=== PATIENT | female | born 1950 | race Caucasian/White ===

== ENCOUNTER → 2017-02-12 | Outpatient (CLI) | payer MEDICARE, OTHER ==
[2015-06-20 11:30] VITALS: BP 134/70
[~2017-02-12] MED LIST: AMIT75TA PO; ATOR10TA60 PO; CIPR250T PO; CIPR500T PO; CIPR500T94 PO; CITR473S3 PO; CRESTOR10 MG PO; FOLI1CAP10 PO; HYDR-2666 PO; HYDR25TA PO; LANS30CA17 PO; LISI10TA2 PO; LORA1TAB PO; NITR100C PO; OMEP20CA9 PO; PHEN-373 PO; POTA10TA17 PO; PROP1TAB8 PO; PROP80CA3 PO
--- NOTE | 2017-02-12 16:07 | RAD ---
Examination: Ultrasound kidneys. History: History of renal calculi Comparison: None available Findings: The right kidney measures 7.3 x 3.8 x 4.2 cm. The left kidney measures 8.2 x 4.9 x 3.2 cm. There is echogenicity identified in the lower pole of the right kidney measuring 7 mm. There is echogenicity identified in the lower pole of the left kidney measuring 6 mm likely intrarenal collecting system calculi. The urinary bladder is nondistended. No hydronephrosis. Mild echogenic appearing bilateral kidneys. Impression: 1. Echogenicity identified in the right kidney measuring 8 mm in the right kidney and a 6 mm echogenicity identified in the left kidney likely intrarenal collecting system calculi. 2. Mild echogenic appearing bilateral kidneys could be due to medical renal disease.
== END | disposition home or self-care (01) ==
LOC: US 14:47
PROVIDERS: ATTEND Nurse Practitioner Occupational Health
DX: N20.0 Calculus of kidney (principal)
CPT/HCPCS: 76770

== ENCOUNTER → 2017-05-10 | Outpatient (CLI) | payer MEDICARE, OTHER ==
[2015-06-20 11:30] VITALS: BP 134/70
[~2017-05-10] MED LIST changes: -HYDR-2666 PO; +HYDR-2758 PO; -LANS30CA17 PO; +LANS30CA66 PO; -PHEN-373 PO; +PHEN-444 PO
[2017-05-10 11:20] LABS: CALCIUM 9.3 mg/dL (8.5-10.1); CREATININE 2.1 mg/dL (0.6-1.0); GFR 23.6; POTASSIUM 4.5 mmol/L (3.5-5.1)
[2017-05-10 20:10] LABS: URIC ACID 24 HR UR 236.6 mg/24 hr (250.0-750.0); URIC ACID UR 8.3 mg/dL (Not Estab.)
[2017-05-11 01:08] LABS: CALCIUM 24 HR UR 25.7 mg/24 hr (100.0-300.0); CALCIUM UR 0.9 mg/dL (Not Estab.)
== END | disposition home or self-care (01) ==
LOC: LAB 10:51
PROVIDERS: ATTEND Nurse Practitioner Occupational Health
DX: R93.429 Abnormal radiologic findings on diagnostic imaging of unspecified kidney (principal); N20.0 Calculus of kidney
CPT/HCPCS: 36415; 80048; 82340; 84560

== ENCOUNTER → 2017-06-24 | Outpatient (CLI) | payer MEDICARE, OTHER ==
[2015-06-20 11:30] VITALS: BP 134/70
--- NOTE | 2017-06-24 14:46 | KCIC ---
PA and lateral chest radiographs 06/24/2017 CLINICAL HISTORY: Bilateral vocal cord paralysis. PA and lateral digital radiographs of the chest were obtained. No previous studies are available for comparison. The cardiac silhouette is mildly enlarged. The thoracic aorta is tortuous. Atherosclerotic calcification of the thoracic aorta is seen. Multiple calcified hilar and mediastinal lymph nodes are seen. Small calcified granulomas are seen involving both lungs. Areas of probable scarring are seen involving both upper lobes, right greater than left. No acute pulmonary infiltrate is seen. No pleural effusion or pneumothorax is noted. The osseous structures are grossly intact. IMPRESSION: 1. Findings consistent with prior granulomatous disease. 2. No acute pulmonary infiltrate is seen. Electronically signed by: Mariano Rg MD (06/24/2017 2:43 PM) [facility]
== END | disposition home or self-care (01) ==
LOC: KCIC 14:09
PROVIDERS: ATTEND Orthopaedic Surgery Sports Medicine
DX: J38.02 Paralysis of vocal cords and larynx, bilateral (principal)
CPT/HCPCS: 71020

== ENCOUNTER → 2018-01-13 | Outpatient (CLI) | payer MEDICARE, OTHER | END | disposition home or self-care (01) | LOC: KCIC MRI 10:39 | DX: S76.011A Strain of muscle, fascia and tendon of right hip, initial encounter (principal); G89.29 Other chronic pain; X58.XXXA Exposure to other specified factors, initial encounter; Y93.89 Activity, other specified; Y92.89 Other specified places as the place of occurrence of the external cause; Y99.8 Other external cause status | CPT/HCPCS: 73721 ==

== ENCOUNTER → 2019-07-20 | Outpatient (CLI) | payer MEDICARE, OTHER ==
[2015-06-20 11:30] VITALS: BP 134/70
[~2019-07-20] MED LIST changes: -HYDR-2758 PO; +HYDR-2761 PO; +OMEP20CA10 PO; -OMEP20CA9 PO
--- NOTE | 2019-07-20 09:06 | RAD ---
DATE: 07/20/2019. EXAM: DIGITAL DIAGNOSTIC RT HISTORY: Postbiopsy marker placement mammogram. COMPARISON: Previous mammogram from 06/29/2019. This study was interpreted with the benefit of Computerized Aided Detection (CAD). FINDINGS: Breast Density: HETERO The breast parenchyma Is heterogeneously dense, which could reduce sensitivity of mammography. Breast parenchyma level C. Biopsy marker is seen at 12:00 position adjacent to the dominant focus of calcification. IMPRESSION: As above. Pathology pending.
--- NOTE | 2019-07-20 09:22 | RAD ---
Indication: Right breast mass. Patient here for ultrasound guided biopsy. TECHNIQUE: After explaining risks and benefits of the procedure, informed consent was obtained. Appropriate entrance site was chosen over the right breast. The skin was prepped and draped using usual sterile procedure. 1 percent lidocaine was used for local anesthesia. Under ultrasound guidance for 5 core biopsies was obtained. Postbiopsy marker placement was placed. Patient was sent for mammogram. COMPARISON: Outside ultrasound from 06/29/2019. FINDINGS: Ill-defined hypoechoic mass is seen at position approximately 4 cm from the nipple from which 5 core biopsy samples were obtained. IMPRESSION: Ultrasound-guided right breast mass biopsy. Pathology pending. Electronically signed by: Александр Peñaloza DO (07/20/2019 9:19 AM) [facility]
--- NOTE | 2019-07-24 08:06 | PATHOLOGY ---
[facility] Accession Number: [id number] . 01 Material submitted: . breast - RIGHT BREAST MASS, 12:00, 4CMFN. Modifiers: right, 12:00 . 01 Clinical history: . Right breast mass . 02 Diagnosis: Breast tissue, right breast mass 12:00 needle biopsies: - Stromal fibrosis and sclerosing adenosis. - Scattered microcalcifications identified. (JPM:cosmetician apprentice; 07/21/2019) MBR/07/21/2019 . 02 Comment: Sections of the right breast mass needle biopsy reveal breast tissue showing stromal fibrosis and sclerosing adenosis. There are scattered microcalcifications present. There is no atypia or evidence of malignancy. (JPM:cosmetician apprentice; 07/21/2019) . 02 Electronically signed: . Vivek Raygoza MD, Pathologist NPI- [id number] . 01 Gross description: . The specimen is received in formalin, labeled "Flavia Hodges, right breast 12:00". The specimen is additionally labeled on the requisition as, "right breast mass 12:00 4 cm from nipple". Received are multiple needle cores of fibrofatty tissue measuring 1.7 x 1.0 x 0.2 cm in aggregate dimensions. The specimen is submitted entirely in cassettes A1 through A3. The cold ischemic time is 8 minutes. The total formalin fixation time is 13 hours and 6 minutes. (CAA; 07/20/2019) QAC/QAC . 02 Pathologist provided ICD-10: N60.31, N60.21 . 02 CPT . 486598 Specimen Comment: A courtesy copy of this report has been sent to Specimen Comment: [phone], . Specimen Comment: Report sent to / DR MONTGOMERY Performed at: 01 [facility] [address], [place], [place] [id number] MD Zheng Headley MD Phone: [phone] Performed at: 02 [facility] [address] [place], [place] [id number] MD Vivek Raygoza MD Phone: [phone]
== END ==
LOC: US 11:38
PROVIDERS: ATTEND Family Medicine
DX: N60.31 Fibrosclerosis of right breast (principal)
CPT/HCPCS: 19083; 77065; 88305; C1713; 19081; 76942

== ENCOUNTER → 2020-11-18 | Outpatient (CLI) | payer MEDICARE, OTHER ==
[2015-06-20 11:30] VITALS: BP 134/70
[~2020-11-18] MED LIST changes: -OMEP20CA10 PO; +OMEP20CA16 PO; +REGADENOSON 0.4 MG/5 ML DISP.SYRIN. IV ONE
--- NOTE | 2020-11-18 14:40 | CARD ---
MR#: [id number] Date of Study: 11/18/2020 Ordering Physician: AGUS BRIAN, Referring Physician: AGUS BRIAN Tech: Alisson Burgess RDCS APPROVED REPORT EXAM: Two-dimensional and M-mode echocardiogram with Doppler and color Doppler. Other Information Quality : Good INDICATION Exertional Dyspnea 2D DIMENSIONS RVDd2.6 (2.9-3.5cm)Left Atrium(2D)4.8 (1.6-4.0cm) IVSd0.8 (0.7-1.1cm)Aortic Root(2D)2.6 (2.0-3.7cm) LVDd4.9 (3.9-5.9cm)LVOT Diameter1.9 (1.8-2.4cm) PWd0.8 (0.7-1.1cm)LVDs3.2 (2.5-4.0cm) FS (%) 35.4 %SV73.1 ml LVEF(%)64.6 (>50%) Aortic Valve AoV Peak David.149.1cm/sAoV VTI17.4cm AO Peak GR.8.9mmHgLVOT Peak David.92.5cm/s LVOT VTI 11.44cmAO Mean GR.4mmHg GALINA (VMAX)1.90ou8WFV (VTI)1.96cm2 Mitral Valve MV E Peak Gr.118mmHgMV DECEL FPVV681ye MV E Mean Gr.30mmHgMV IWS214tg MVA (PHT)1.89cm2 Tricuspid Valve TR P. Dboxsavp233ml/sRAP BWHMOYJL8lwVg TR Peak Gr.94jpQqVJHV52mvEn Pulmonary Vein S1 Kjcrrkxw42.2cm/sD2 Lgyzolre73.3cm/s LEFT VENTRICLE The left ventricle is normal size. There is normal left ventricular wall thickness. The left ventricu lar systolic function is normal and the ejection fraction is within normal range. The Ejection Fracti on is 60-65%. There is normal LV segmental wall motion. Tissue Doppler imaging reveals severe left ve ntricular diastolic dysfunction. No left ventricle thrombus noted on this study. There is no ventricu lar septal defect visualized. RIGHT VENTRICLE The right ventricle is mildly to moderately dilated. The right ventricular systolic function is edison l. ATRIA The left atrium is severely dilated. The right atrium size is normal. The interatrial septum is intac t with no evidence for an atrial septal defect or patent foramen ovale as noted on 2-D or Doppler trever ging. AORTIC VALVE The aortic valve is calcified but opens well. Doppler and Color Flow revealed trace to mild aortic re gurgitation. There is no significant aortic valvular stenosis. 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 There appears to be no evidence of mitral valve prolapse. 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 Doppler and Color Flow revealed mild tricusp id regurgitation. There is moderate pulmonary hypertension. The PA pressure was estimated at 46 mmHg. There is no tricuspid valve stenosis. PULMONIC VALVE The pulmonic valve is not well visualized. Doppler and Color Flow revealed trace pulmonic valvular re gurgitation. There is no pulmonic valvular stenosis. GREAT VESSELS The aortic root is normal in size. PERICARDIAL EFFUSION There is a small pericardial effusion. Critical Notification Critical Value: No <Conclusion> The left ventricular systolic function is normal and the ejection fraction is within normal range. Th e Ejection Fraction is 60-65%. There is normal LV segmental wall motion. 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 There is moderate pulmonary hypertensio n. The PA pressure was estimated at 46 mmHg. There is a small pericardial effusion. Signed by : Trav Ndiaye, Electronically Approved : 11/18/2020 14:39:37
--- NOTE | 2020-11-18 15:36 | RAD ---
MR#: [id number] Date of Study: 11/18/2020 Ordering Physician: AGUS BRIAN Referring Physician: HELLEN FLORES Tech: RT Pramod CampbellR) (N) APPROVED REPORT Test Type: Pharmacological Stress Nurse/Tech: Denia Domínguez RN Test Indications: Chest Pain Cardiac History: See EMR. Medications: See EMR. Medical History: See EMR. Resting ECG: SVT Resting Heart Rate: 110 bpm Resting Blood Pressure: 132/81mmHg Pretest Chest Pain: No chest pain Nurse/Tech Notes Lungs CTA, Heart tones regular. Consent: The procedure was explained to the patient in lay terms. Informed consent was witnessed. Tahir eout was entered into [employer]. History and Stress Test performed by RT Gayatri (R) (N) Pharm. Details Pharmacologic stress testing was performed using 0.4mg per 5ml of regadenoson given intravenously ove r 7-10 seconds. Stress Symptoms Dyspnea. Pt c/o chest pressure of 6/10 in stage R @ 00:55. This was resolved to 0/10 in stage R @ 01: 55. POST EXERCISE Reason for Termination: Infusion complete Max HR: 115 bpm Max Blood Pressure: 143/72mmHg Blood Pressure response to exercise: Normal blood pressure response during stress. Heart Rate response to exercise: WNL Chest Pain: Yes. See Stress Symptoms Arrhythmia: No. ST Change: No. INTERPRETATION Stress EKG Conclusion: No evidence of stress induced EKG changes. Imaging Protocol IMAGE PROTOCOL: Rest Tc-99m/stress Tc-99m 1 day Rest: Stress: Viability: Radiopharm.Tc99m NetrecuwhSr13b Sestamibi Dose10.8mCi 31.2mCi Duration 15min. 15min. Img Date 11/18/2020 11/18/2020 Inj-Img [id number]. 60min. Rest Admin Site:IV - Right AntecubitalAdministrator: RT Gayatri (R)(N) Stress Admin Site: IV - Right AntecubitalAdministrator: RT Gayatri (R)(N) STRESS DATA End Diast. Vol.77.0mlAv. Heart Zqxo474.0bpm End Syst. Vol.12.0mlCO Index BSA0.0L/min Myocardial Yenx769.0gEject. Cgxscylc17.0% Stress Rates Pk. Fill Rate4.68EDV/secLVtime Pk. Fill 134.26msec Pk. Empty Rate5.55ESV/secLVtime Pk. Eject60.21msec 1/3 Pk. Fill1.30EDV/sec Stress Scores Regional WT1.00Summed WT5.00 Regional WM0.00Summed WM0.00 The rest and stress images show normal perfusion, normal contraction and thickening. LV Perf. Quant 17 Seg. SSS0.00 17 Seg. SRS0.00 17 Seg. SDS0.00 Stress Defect Extent (% LAD)0.00Rest Defect Extent (% LAD)0.00Rev. Defect Extent (% LAD)0.00 Stress Defect Extent (% LCX) 0.00Rest Defect Extent (% LCX)0.00Rev. Defect Extent (% LCX)0.00 Stress Defect Extent (% RCA)0.00Rest Defect Extent (% RCA)0.00Rev. Defect Extent (% RCA)0.00 Stress Defect Extent (% PALLAVI)0.00Rest Defect Extent (% PALLAVI)0.00Rev. Defect Extent (% PALLAVI)0.00 Other Information Quality:Good Risk Assessment: Low Risk Conclusion 1. No evidence of EKG changes with stress testing. 2. Normal perfusion at stress/rest. 3. Low risk study. 4. EF > 60%. Signed by : Trav Ndiaye, Electronically Approved : 11/18/2020 15:36:02
== END ==
LOC: NM 09:37
PROVIDERS: ATTEND Internal Medicine Cardiovascular Disease
DX: I08.8 Other rheumatic multiple valve diseases (principal); R06.09 Other forms of dyspnea; R07.9 Chest pain, unspecified
CPT/HCPCS: 78452; 93017; 93306; A9500; J2785

== ENCOUNTER → 2020-12-06 | Outpatient (CLI) | payer MEDICARE, OTHER ==
[2015-06-20 11:30] VITALS: BP 134/70
[~2020-12-06] MED LIST changes: +ALLO100T PO; -CIPR500T PO; +CIPR500T2 PO; +COLC0.6T45 PO; +HYDR50CA2 PO; +LANS15CA78 PO; +LISI10TA16 PO; -LISI10TA2 PO; +POTASSIUM CITRATE PO; -REGADENOSON 0.4 MG/5 ML DISP.SYRIN. IV ONE; +SOY1TABL2 PO; +TRAM50TA PO
== END ==
LOC: LAB 11:23
PROVIDERS: ATTEND Internal Medicine Cardiovascular Disease
DX: Z01.812 Encounter for preprocedural laboratory examination (principal); I34.0 Nonrheumatic mitral (valve) insufficiency; Z20.828 Contact with and (suspected) exposure to other viral communicable diseases
CPT/HCPCS: U0003

== ENCOUNTER 2020-12-10 06:46 | Day surgery (SDC) | payer MEDICARE, OTHER ==
[~2020-12-10] VITALS: Ht 165.1 cm; Wt 56.7 kg
[~2020-12-10 06:46] MED LIST changes: -ALLO100T PO; +CIPR500T PO; -CIPR500T2 PO; -COLC0.6T45 PO; -HYDR50CA2 PO; -LANS15CA78 PO; -LISI10TA16 PO; +LISI10TA2 PO; -POTASSIUM CITRATE PO; -SOY1TABL2 PO; -TRAM50TA PO
[2020-12-10] MEDS ORDERED: MORPHINE SULFATE 2 MG/ML VIAL. IV PRN (07:00)
[2020-12-10] MEDS ORDERED: IV RINGERS,LACTATED 1000ML 1,000 ML IV SCH (07:00)
[2020-12-10] MEDS ORDERED: HYDROmorphone 2 MG/ML VIAL IV PRN (07:00)
[2020-12-10] MEDS ORDERED: ONDANSETRON PF 4 MG/2 ML VIAL. IV PRN (07:00)
[2020-12-10] MEDS ORDERED: fentaNYL PF VIAL 100 MCG/2 ML VIAL IV PRN ×2 (07:00)
[2020-12-10] MEDS ORDERED: PROCHLORPERAZINE 10 MG/2 ML VIAL. IV PRN (07:00)
[2020-12-10] MEDS ORDERED: LIDOCAINE 1% PF 2 ML VIAL. ID PRN (07:00)
[2020-12-10] MEDS ORDERED: 0.9 % SODIUM CHLORIDE 10 ML DISP.SYRIN. IV PRN (07:15)
[2020-12-10] MEDS ORDERED: BENZOCAINE ONE 20% MUCOSAL SPRAY. MM ×2 (07:15→10:00)
[2020-12-10] MEDS ORDERED: LIDOCAINE 2% TOPICAL JELLY 5GM TUBE. TP ONE (07:15)
[2020-12-10] MEDS ORDERED: LIDOCAINE 2% VISCOUS 15 ML SOLUTION. MM ONE (07:15)
[2020-12-10 07:38] LABS: HEMATOCRIT 42.6 % (36.0-47.0); HEMOGLOBIN 14.3 g/dL (12.0-15.5); RED BLOOD COUNT 4.47 x10^6/uL (3.50-5.40); RED CELL DISTRIBUTION WIDTH 14.2 % (11.5-14.5); WHITE BLOOD COUNT 5.6 x10^3/uL (4.0-11.0)
[2020-12-10] MEDS ORDERED: IODIXANOL 320 MG/ML 100 ML VIAL. ONE (07:38)
[2020-12-10] MEDS ORDERED: LIDOCAINE 1% Multi-Dose 20 ML VIAL. ONE (07:39)
[2020-12-10 07:48] LABS: PROTHROMBIN TIME PATIENT 12.1 SEC (11.7-14.0)
[2020-12-10 07:52] LABS: CALCIUM 9.2 mg/dL (8.5-10.1); CREATININE 1.9 mg/dL (0.6-1.0); GFR 26.2; POTASSIUM 4.4 mmol/L (3.5-5.1)
[2020-12-10] MEDS ORDERED: KETAMINE HCL IN NACL, ISO-OSM 50 MG/5 ML SYRINGE ONE (08:22)
[2020-12-10] MEDS ORDERED: fentaNYL PF VIAL 250 MCG/5 ML VIAL ONE (08:22)
[2020-12-10] MEDS ORDERED: MIDAZOLAM HCL/PF 2 MG/2 ML VIAL. ONE (08:22)
[2020-12-10] MEDS ORDERED: LANS15CA78 PO (08:28)
[2020-12-10] MEDS ORDERED: LIDOCAINE 2% TOPICAL JELLY 30GM TUBE. TP ONE (08:28)
[2020-12-10] MEDS ORDERED: HYDR50CA2 PO (08:28)
[2020-12-10] MEDS ORDERED: TRAM50TA PO (08:28)
[2020-12-10] MEDS ORDERED: LIDOCAINE 2% VISCOUS 15 ML SOLUTION. ONE (08:28)
[2020-12-10] MEDS ORDERED: POTASSIUM CITRATE PO (08:28)
[2020-12-10] MEDS ORDERED: SOY1TABL2 PO (08:28)
[2020-12-10] MEDS ORDERED: BENZOCAINE ONE 20% MUCOSAL SPRAY. (08:28)
[2020-12-10] MEDS ORDERED: COLC0.6T45 PO (08:28)
[2020-12-10] MEDS ORDERED: ALLO100T PO (08:28)
[2020-12-10 08:29] VITALS: BP 124/73
[2020-12-10] MEDS ORDERED: HEPARIN for IV BOLUS 10,000 UNIT/10 ML VIAL. ONE (09:35)
[2020-12-10] MEDS ORDERED: IODIXANOL 320 MG/ML 100 ML VIAL. IART ONE (10:00)
[2020-12-10] MEDS ORDERED: LIDOCAINE 1% Multi-Dose 20 ML VIAL. INJ ONE (10:00)
[2020-12-10] MEDS ORDERED: LIDOCAINE 2% JELLY 6ML IN APPLICATOR. MM ONE (10:00)
[2020-12-10] MEDS ORDERED: LIDOCAINE 2% VISCOUS 15 ML SOLUTION. SWSW ONE (10:00)
[2020-12-10] MEDS ORDERED: HEPARIN for IV BOLUS 10,000 UNIT/10 ML VIAL. IV ONE (10:00)
[2020-12-10] MEDS ORDERED: IV 1/2 NORMAL SALINE 1,000 ML IV SCH (10:15)
[2020-12-10] MEDS ORDERED: PROPOFOL 10 MG/ML (20ML) VIAL. IV ONE (10:26)
[2020-12-10] MEDS ORDERED: LIDOCAINE 2% PF 5 ML VIAL. ONE (10:26)
--- NOTE | 2020-12-10 10:32 | CARD ---
MR#: [id number] Date of Study: 12/10/2020 Ordering Physician: AGUS GOTTLIEB, Referring Physician: AGUS GOTTLIEB, Tech: RT Guru (R) APPROVED REPORT Technologist: RT Guru (R) Nurse: Mary Brantley R.N. Procedure(s) performed: 1. Right and left heart catheterization and selective coronary angiography 2. Instantaneous wave free ratio (IFR) measurement to left anterior descending artery stenosis FL TIME: 12.8 MIN DOSE: 49 GYCM2 CONTRAST: 130 ML ESTIMATED BLOOD LOSS: 10 ML INDICATION The indication(s) include : Chest pain, acute on chronic diastolic heart failure, mitral regurgitatio n. [facility] Clinical Frailty Scale [facility] Clinical Frailty Scale: Moderately Frail Heart Failure Heart Failure: Yes If Yes, Newly Diagnosed: No If Yes, HF Type: Diastolic If Yes, NYHA Class: Class II PROCEDURE NARRATIVE After explaining the risk, benefits and alternative options, informed consent was obtained from patie nt. Patient was brought to the cardiac Order Desk Clerk and after anesthesiology team induced deep sedation, a transesophageal echocardiogram probe was advanced and standard tomographic images were obtained to evaluate the severity of mitral regurgitation. This will be reported separately. Subsequently, her right groin was prepped and draped in the usual fashion. 20 cc of 2% lidocaine was infiltrated into the skin and subcutaneous tissues for local anesthesia. Arterial and venous accesses were obtained in the right common femoral artery and vein respectively and 6 and 8 Andorran sheaths inserted. A 7.5 Andorran Solomon-Amrik catheter was then advanced under fluoroscopic guidance and intracardiac pressures, o xygen saturations and cardiac output by thermodilution method determined. Subsequently, 6 Andorran JL4 and 6 Andorran JR4 catheters were used to perform selective angiography of the left and right coronary arteries. LVEDP and transaortic gradients were measured. Left ventriculography was not performed d ue to elevated creatinine level. Since patient was found to have angiographically borderline significant stenosis involving the left a nterior descending artery, a decision was made to perform physiologic assessment using instantaneous wave free ratio (IFR) measurement. After initial unsuccessful attempts at engaging the left main cor onary artery with 6 Andorran XB 3.5 guide catheter, this was engaged with a 6 Andorran JL4 guide catheter . The stenosis in the midsegment was crossed with a [employer] Verrata pressure wire. iFR measurement was made that came back insignificant at 0.92. Hence no interventions were performed on this stenosi s. Patient tolerated the procedure well. Hemostasis in the right groin was achieved using Angio-Sea l and manual compression. There were no immediate complications. FINDINGS A. RIGHT HEART CATHETERIZATION 1. Intracardiac pressures: Mean right atrial pressure 15 mmHg, right ventricular pressure 79/11 mmHg , pulmonary artery pressure 77/38 mmHg with mean PA pressure 56 mmHg and mean pulmonary capillary wed ge pressure 31 mmHg. The pulmonary capillary wedge pressure waveform had a prominent V wave secondar y to mitral regurgitation. This is consistent with elevated right-sided filling pressures and modera te pulmonary hypertension probably secondary to elevated left atrial pressure from mitral regurgitati on. 2. Oxygen saturations: Right atrium 76.2%, pulmonary artery 79.1%, femoral arterial sheath 97.1%. N o evidence of intracardiac shunt. 3. Cardiac output by Maurice method 4.79 L/min. B. LEFT HEART CATHETERIZATION 1. Hemodynamics: Left ventricular end-diastolic pressure 18 mmHg. No pullback gradient across the a ortic valve. 2. Coronary angiography: a. The left main coronary artery arose from the left sinus of Valsalva, gave rise to the left anteri or descending and left circumflex arteries and did not show any significant stenosis. b. The left anterior descending artery showed 30% stenosis in the proximal segment and 60% stenosis in the mid segment that was physiologically insignificant based on IFR measurement of 0.92. The diag onal branch which is a small to medium caliber vessel showed 70% proximal segment stenosis. c. The left circumflex artery was a large and codominant vessel that did not show any significant st enosis. d. The right coronary artery was a codominant vessel arising from the right sinus of Valsalva that d id not show any significant stenosis. Conclusion 1. 60% stenosis involving the left anterior descending artery found to be physiologically insignific ant based on IFR measurement of 0.92. The diagonal branch showed 70% stenosis in the proximal segmen t but this was a small to medium caliber vessel. No significant lesions needing intervention were no carmella. 2. Elevated mean right atrial pressure, moderate pulmonary hypertension and significantly elevated p ulmonary capillary wedge pressure probably secondary to elevated left atrial pressure from mitral reg urgitation. 3. No evidence of intracardiac shunt. Recommendations Consider referral to Valve clinic for possible mitral valve replacement. Signed by : Agus Gottlieb, Electronically Approved : 12/10/2020 10:32:27
[2020-12-10] MEDS ORDERED: fentaNYL PF VIAL 100 MCG/2 ML VIAL ONE (10:37)
[2020-12-10 12:05] VITALS: BP 116/60
--- NOTE | 2020-12-11 12:37 | CARD ---
MR#: [id number] Date of Study: 12/10/2020 Ordering Physician: AGUS GOTTLIEB, Referring Physician: AGUS GOTTLIEB, Tech: Anne Ferrer APPROVED REPORT EXAM: Transesophageal echocardiogram with color flow Doppler. INDICATION Dyspnea Pre-Op RISK FACTORS Hyperlipidemia Mitral Valve MV E Peak Gr.91mmHgMV E Mean Gr.16mmHg Tricuspid Valve RAP [id number] Peak Gr.57mmHg [id number] Reason For Test : Rule out Intracardiac Thrombus. PROCEDURE After obtaining informed consent, patient underwent transesophageal echo in the Extractor Filler. Type of Sedation : General Anesthesia Sedation was administered by . Sedation was achieved with Propofol intravenously. The HERNAN was performed without complications. Throughout the procedure, the blood pressure, pulse oximetry, cardiac rhythm, and rate were monitored . The patient tolerated the procedure without adverse effects. Recovery from general anesthesia was une ventful and vital signs were stable. LEFT VENTRICLE The left ventricle is normal size. There is normal left ventricular wall thickness. The left ventricu lar systolic function is normal. The ejection fraction is 60-65%. There is normal LV segmental wall m otion. No left ventricle thrombus noted on this study. RIGHT VENTRICLE The right ventricle is borderline dilated. The right ventricular systolic function is normal. ATRIA The left atrium is severely dilated. The right atrium size is normal. The interatrial septum is intac t with no evidence for an atrial septal defect or patent foramen ovale as noted on 2-D or Doppler trever ging. AORTIC VALVE The aortic valve is calcified but opens well. Doppler and Color Flow revealed trace aortic regurgitat ion. There is no significant aortic valvular stenosis. MITRAL VALVE The mitral valve is thickened and had rheumatic appearance with restricted opening especially the ant erior leaflet. 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 There is no evidence of mitral valve prolapse. There is severe mitral valve stenosis. Doppler and Color-flow revealed moderate to severe mitral regurgita tion. TRICUSPID VALVE The tricuspid valve is normal in structure and function. Doppler and Color Flow revealed mild tricusp id regurgitation with an estimated PAP of 60 mmHg. There is moderate to severe pulmonary hypertension . PULMONIC VALVE The pulmonary valve is normal in structure and function. Doppler and Color Flow revealed trace pulmon ic valvular regurgitation. GREAT VESSELS The aortic root is normal in size. PERICARDIAL EFFUSION There is no evidence of significant pericardial effusion. Critical Notification Critical Value: No <Conclusion> The left ventricular systolic function is normal. The ejection fraction is 60-65%. There is normal LV segmental wall motion. The left atrium is severely dilated. The mitral valve is thickened and had rheumatic appearance with restricted opening especially the ant erior leaflet. 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 There is moderate to severe pulmonary hypertension. There is no evidence of significant pericardial effusion. Signed by : Agus Gottlieb, Electronically Approved : 12/11/2020 12:37:04
== END 2020-12-10 12:15 | disposition home or self-care (01) ==
LOC: SURG 06:46
PROVIDERS: ATTEND Internal Medicine Cardiovascular Disease
DX: I34.0 Nonrheumatic mitral (valve) insufficiency (principal); I13.0 Hypertensive heart and chronic kidney disease with heart failure and stage 1 through stage 4 chronic kidney disease, or unspecified chronic kidney disease; I50.33 Acute on chronic diastolic (congestive) heart failure; I25.10 Atherosclerotic heart disease of native coronary artery without angina pectoris; N18.30 Chronic kidney disease, stage 3 unspecified; E78.00 Pure hypercholesterolemia, unspecified; K21.9 Gastro-esophageal reflux disease without esophagitis; M19.90 Unspecified osteoarthritis, unspecified site; M10.9 Gout, unspecified; F41.9 Anxiety disorder, unspecified; Z85.3 Personal history of malignant neoplasm of breast; Z90.710 Acquired absence of both cervix and uterus; Z98.890 Other specified postprocedural states; Z87.891 Personal history of nicotine dependence; Z79.899 Other long term (current) drug therapy; Z88.0 Allergy status to penicillin; Z88.1 Allergy status to other antibiotic agents; Z88.2 Allergy status to sulfonamides; Z88.8 Allergy status to other drugs, medicaments and biological substances; Z82.49 Family history of ischemic heart disease and other diseases of the circulatory system; Z83.3 Family history of diabetes mellitus
CPT/HCPCS: 36415; 80048; 85027; 85610; 93312; 93320; 93325; 93460; 93571; C1760; C1769; C1773; C1887; C1892; J1644; J2250; J2704; J3010; J3490; Q9967; G0269; C1771

== ENCOUNTER → 2021-06-05 | Outpatient (CLI) | payer MEDICARE, OTHER ==
[~2021-06-05] MED LIST changes: +ALLO100T PO; -CIPR500T PO; +CIPR500T2 PO; +COLC0.6T45 PO; +HYDR50CA2 PO; +LANS15CA73 PO; +LISI10TA16 PO; -LISI10TA2 PO; +POTASSIUM CITRATE PO; +SOY1TABL2 PO; +TRAM50TA PO
--- NOTE | 2021-06-05 15:16 | KCIC ---
EXAMINATION: US RENAL BILAT INDICATION: 70 years, Female, chronic kidney disease stage III. COMPARISON: None TECHNIQUE: Grayscale and limited color Doppler evaluation of the kidneys and bladder was performed. FINDINGS: RIGHT KIDNEY: MEASURES: 6.6 x 3.3 x 3.6 cm. MORPHOLOGY/PARENCHYMA: Increased cortical echogenicity with mild loss of normal corticomedullary diff erentiation. Unchanged echogenic focus in the inferior pole with posterior acoustic shadowing measure s 4 mm. No discrete masses. COLLECTING SYSTEM: No hydronephrosis. LEFT KIDNEY: MEASURES: 7.1 x 3.0 x 3.3 cm. MORPHOLOGY/PARENCHYMA: Mild increased cortical echogenicity with loss of normal corticomedullary diff erentiation. Echogenic focus with posterior acoustic shadowing in the inferior pole measures 5 mm. No discrete masses. COLLECTING SYSTEM: No hydronephrosis. URINARY BLADDER: Unremarkable.. IMPRESSION: 1. No hydronephrosis in either kidney. 2. Nonobstructing bilateral nephrolithiasis measuring up to 5 mm in the left. 3. Mildly increased bilateral cortical echogenicity with loss of normal corticomedullary differentiat ion, consistent with known chronic medical renal disease. Electronically signed by: Mike Gonzalez MD (06/05/2021 3:13 PM) [id number]
== END ==
LOC: KCIC US 12:49
PROVIDERS: ATTEND Nurse Practitioner Adult Health
DX: N20.0 Calculus of kidney (principal); N18.32 Chronic kidney disease, stage 3b
CPT/HCPCS: 76770